=== PATIENT | male | born 1985 | race Caucasian/White ===

== ENCOUNTER 2017-10-18 12:57 | Emergency (ER) | payer SELFPAY ==
[2017-10-18] MEDS ORDERED: Lidocaine 1% w/Epinephrine 1:100K 20 ML VIAL ONE (13:31)
[2017-10-18] MEDS ORDERED: Adacel (T-DAP) 0.5 ML VIAL ONE (13:58)
== END 2017-10-18 14:49 | disposition home or self-care (01) ==
LOC: ERS 12:57
DX: L02.413 Cutaneous abscess of right upper limb (principal); F17.210 Nicotine dependence, cigarettes, uncomplicated
CPT/HCPCS: 10060; 87070; 87077; 87186; 87205; 90471; 90715; 99406; J2001

== ENCOUNTER 2019-02-12 23:40 | Inpatient (IN) | payer SELFPAY ==
[~2019-02-12 23:40] MED LIST: Iopamidol 370 76% 100 ML VIAL ONE
[2019-02-12] MEDS ORDERED: Piperacillin/Tazobactam 4.5 GM VIAL ONE (23:54)
[2019-02-13 00:05] LABS: Prothrombin Time 12.9 SEC (12.0-14.7)
[2019-02-13 00:06] LABS: #Basophils 0.1 thou/uL (0.0-0.2); #Eosinphils 0.4 thou/uL (0.0-0.7); #Monocytes 1.3 thou/uL (0.11-0.59); %Basophils 0.7 % (0.0-1.0); %Lymphocytes 39.1 % (21.0-51.0); %Monocytes 10.3 % (0.0-10.0); %Neutrophils 46.9 % (42.0-75.0); Hemoglobin 15.2 g/dL (14.0-18.0); Mean Corpuscular HGB CONC 31.8 g/dL (32.0-36.0); Mean Corpuscular Hemoglobin 28.1 pg (27.0-31.0); Mean Corpuscular Volume 88.4 fL (78.0-98.0); Mean Platelet Volume 7.9 fL (7.4-10.4); Platelet Count 391 thou/uL (130-400); RBC Distribution Width 11.7 % (11.5-14.5); Red Blood Cell (RBC) Count 5.41 mill/uL (4.70-6.10); White Blood Cell (WBC) Count 12.9 thou/uL (4.8-10.8)
[2019-02-13 00:25] LABS: ALT (SGPT) 21 U/L (8-55); AST (SGOT) 23 U/L (5-34); Albumin 4.4 g/dL (3.5-5.0); Alkaline Phosphatase 66 U/L (40-150); Anion Gap 17 mmol/L (10-20); BUN (Urea Nitrogen) 13 mg/dL (8.9-20.6); Bilirubin, Total 0.2 mg/dL (0.2-1.2); Calc. Creatinine Clearance 0 mL/min (70-130); Carbon Dioxide 22 mmol/L (22-29); Chloride 105 mmol/L (98-107); Estimated GFR-MDRD Greater than 90; Globulin 2.3 g/dL (2.4-3.5); Glucose 104 mg/dL (70-105); Potassium 3.6 mmol/L (3.5-5.1); Protein, Total 6.7 g/dL (6.0-8.3); Sodium 140 mmol/L (136-145)
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
[2019-02-13] MEDS ORDERED: Adacel (T-DAP) 0.5 ML SYRINGE ONE (00:51)
[2019-02-13] MEDS ORDERED: Acetaminophen 1,000 MG in Premix Bag 1 BAG IVPB SCH (01:00)
[2019-02-13] MEDS ORDERED: Fentanyl 100 MCG/2 ML VIAL ONE ×2 (01:06→02:00)
[2019-02-13] MEDS ORDERED: Bupivacaine/Epinephrine 0.25% 30 ML VIAL ONE (01:46)
[2019-02-13] MEDS ORDERED: Promethazine HCl 25 MG/ML VIAL SLOW IVP PRN ×2 (03:12→05:10)
[2019-02-13] MEDS ORDERED: Meperidine HCl/PF 25 MG/ML VIAL SLOW IVP PRN (03:12)
[2019-02-13] MEDS ORDERED: Promethazine HCl 25 MG/ML VIAL IM PRN ×2 (03:12→05:10)
[2019-02-13] MEDS ORDERED: PACU-Morphine 4MG/ML VIAL SLOW IVP PRN (03:12)
[2019-02-13 03:55] LABS: Amphetamine Detected (NotDetected); Barbiturates Screen Not Detected (NotDetected); Benzodiazepine Screen Not Detected (NotDetected); Cocaine Metabolite Screen Not Detected (NotDetected); Medtox Control Line Valid? VALID (VALID); Medtox Reader # READER 4; Methadone Not Detected (NotDetected); Methamphetamine Detected (NotDetected); Opiate Screen Not Detected (NotDetected); Oxycodone Screen Not Detected (NotDetected); Phencyclidine (PCP) Not Detected (NotDetected); THC/Cannabinoid Screen Not Detected (NotDetected); Tricyclic Screen Not Detected (NotDetected)
[2019-02-13] MEDS ORDERED: Ondansetron HCl/PF 4 MG/2 ML Vial IVP PRN (05:10)
[2019-02-13] MEDS ORDERED: HumaLOG 300 UNITS/3 ML VIAL SC PRN (06:47)
[2019-02-13] MEDS ORDERED: Ondansetron PF 4 MG/2 ML Vial IVP PRN (06:47)
[2019-02-13] MEDS ORDERED: Dextrose 5% in Water 1,000 ML IV PRN (06:47)
[2019-02-13] MEDS ORDERED: Dextrose 50% Abboject 50 ML SYRINGE SLOW IVP PRN (06:47)
[2019-02-13 07:28] LABS: Hemoglobin 14.7 g/dL (14.0-18.0); Mean Corpuscular Hemoglobin 29.2 pg (27.0-31.0); Mean Corpuscular Volume 88.7 fL (78.0-98.0); Mean Platelet Volume 7.7 fL (7.4-10.4); Platelet Count 328 thou/uL (130-400); RBC Distribution Width 11.8 % (11.5-14.5); Red Blood Cell (RBC) Count 5.02 mill/uL (4.70-6.10)
[2019-02-13 07:46] LABS: Anion Gap 13 mmol/L (10-20); BUN (Urea Nitrogen) 11 mg/dL (8.9-20.6); Calc. Creatinine Clearance 0 mL/min (70-130); Calcium 8.2 mg/dL (7.8-10.44); Carbon Dioxide 20 mmol/L (22-29); Chloride 108 mmol/L (98-107); Estimated GFR-MDRD Greater than 90; Glucose 154 mg/dL (70-105); Magnesium 1.8 mg/dL (1.6-2.6); Phosphorus 2.2 mg/dL (2.3-4.7); Potassium 3.8 mmol/L (3.5-5.1); Sodium 137 mmol/L (136-145)
[2019-02-13 07:52] LABS: Band 2 % (5-11); Lymphocytes 3 % (21-51); MDiff Complete? YES; Monocytes 6 % (0-10); Neutrophil 84 % (42-75); Platelet Morphology Comment Appears Adequate; RBC Morphology Normal; Reactive Lymphocytes 5 % (0-10); White Blood Cell (WBC) Count 21.8 thou/uL (4.8-10.8)
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
[2019-02-13] MEDS ORDERED: Sodium Phosphate 30 MMOL in Sodium Chloride 0.9% 250 ML 250 ML IVPB SCH (08:15)
[2019-02-13] MEDS ORDERED: Magnesium Sulfate 4 GM in Sodium Chloride 0.9% 250 ML 250 ML IVPB SCH (08:15)
[2019-02-13] MEDS: Ketorolac Tromethamine 30 MG/ML VIAL IVP SCH ×4 (08:52→20:23)
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
[2019-02-13] MEDS: Acetaminophen 1,000 MG in Premix Bag 1 BAG IVPB SCH ×3 (10:30→20:22)
[2019-02-13] MEDS: Famotidine/PF 20 mg/2ml Vial SLOW IVP SCH ×2 (10:31→20:29)
[2019-02-13 10:47] VITALS: BMI 25.0
[2019-02-13] MEDS ORDERED: Prevnar 13-Val Conj/PF 0.5 ML SYRINGE IM ONE (12:15)
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
[2019-02-13] MEDS: Piperacillin/Tazobactam 3.375 GM in Sodium Chloride 0.9% 100 ML IVPB SCH ×2 (12:52→18:46)
[2019-02-13] MEDS: Sodium Chloride 0.9% 1,000 ML IV SCH (12:56)
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
[2019-02-13] MEDS ORDERED: Ondansetron PF 4 MG/2 ML Vial ONE (15:25)
[2019-02-13] MEDS ORDERED: PHENYLEPHRINE-NS 100 MCG/ML 10 ML SYRINGE ONE (15:25)
[2019-02-13] MEDS ORDERED: Dexamethasone 20 MG/5 ML VIAL ONE (15:25)
[2019-02-13] MEDS ORDERED: PROPOFOL 200 MG/20 ML VIAL ONE (15:25)
[2019-02-13] MEDS ORDERED: Rocuronium Bromide 10 MG/ML (10ML VIAL) ONE (15:25)
[2019-02-13] MEDS ORDERED: Succinylcholine Chloride 20 MG/ML 10 ml SYRINGE FS ONE (15:25)
[2019-02-13] MEDS ORDERED: Glycopyrrolate 0.2 MG/ML 5 ML SYRINGE ONE (15:25)
[2019-02-13] MEDS ORDERED: Lidocaine 1% PF 5 ML VIAL ONE (15:25)
--- NOTE | 2019-02-13 19:01 | PDOC.GSPN ---
Surgery Progress Note: Subj - Subjective Narrative: Seen with Alo Garcia MS 3; please see his note. I agree with his evaluation. The patient states that he does not drink on a regular basis, and he appears to have a binge pattern of alcohol misuse. He denies any history of withdrawal or the shakes. Still, I agree that we need to be vigilant for withdrawal. The patient has been tolerating ice chips but hasn't passed gas or had a bowel movement yet so I did not advance his diet, but I will start him on clear liquids tomorrow. He is ambulating. The trauma team is following as well. Surgery Progress Note: Obj - Vital signs Vital signs: Vital Signs - Most Recent Temp Pulse Resp BP Pulse Ox 97.6 F 104 H 16 108/69 98 02/13/19 15:41 02/13/19 15:41 02/13/19 15:41 02/13/19 15:41 02/13/19 15:41 Surgery Progress Note: Results - Labs Result Diagrams: 02/13/19 07:20 02/13/19 07:20 Lab results: Laboratory Results - last 24 hr 02/13/19 02/13/19 07:20 07:20 WBC 21.8 H RBC 5.02 Hgb 14.7 Hct 44.5 MCV 88.7 MCH 29.2 MCHC 33.0 RDW 11.8 Plt Count 328 MPV 7.7 Neutrophils % (Manual) 84 H Band Neuts % (Manual) 2 L Lymphocytes % (Manual) 3 L Reactive Lymphs % 5 Monocytes % (Manual) 6 Neutrophils # Not Reportable Lymphocytes # Not Reportable Plt Morphology Comment Appears Adequate RBC Morph Comment Normal Sodium 137 Potassium 3.8 Chloride 108 H Carbon Dioxide 20 L Anion Gap 13 BUN 11 Creatinine 0.80 Estimated GFR (MDRD) Greater than 90 Glucose 154 H Calcium 8.2 Phosphorus 2.2 L Magnesium 1.8
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
[2019-02-14] MEDS: Piperacillin/Tazobactam 3.375 GM in Sodium Chloride 0.9% 100 ML IVPB SCH ×2 (00:54→05:46)
[2019-02-14] MEDS: Sodium Chloride 0.9% 1,000 ML IV SCH ×2 (00:55→05:45)
[2019-02-14] MEDS: Ketorolac Tromethamine 30 MG/ML VIAL IVP SCH ×2 (02:30→09:19)
[2019-02-14] MEDS: Acetaminophen 1,000 MG in Premix Bag 1 BAG IVPB SCH (02:32)
[2019-02-14 05:31] LABS: #Eosinphils 0.1 thou/uL (0.0-0.7); #Lymphocytes 1.9 thou/uL (1.20-3.40); #Neutrophils 6.8 thou/uL (1.40-6.50); %Basophils 0.3 % (0.0-1.0); %Eosinophils 0.5 % (0.0-10.0); %Lymphocytes 19.4 % (21.0-51.0); %Monocytes 9.8 % (0.0-10.0); %Neutrophils 69.9 % (42.0-75.0); Hemoglobin 12.3 g/dL (14.0-18.0); Mean Corpuscular HGB CONC 32.8 g/dL (32.0-36.0); Mean Corpuscular Hemoglobin 29.8 pg (27.0-31.0); Mean Corpuscular Volume 90.9 fL (78.0-98.0); Mean Platelet Volume 8.2 fL (7.4-10.4); Platelet Count 246 thou/uL (130-400); RBC Distribution Width 11.8 % (11.5-14.5); Red Blood Cell (RBC) Count 4.11 mill/uL (4.70-6.10); White Blood Cell (WBC) Count 9.7 thou/uL (4.8-10.8)
[2019-02-14 05:51] LABS: Anion Gap 9 mmol/L (10-20); BUN (Urea Nitrogen) 13 mg/dL (8.9-20.6); Calc. Creatinine Clearance 138 mL/min (70-130); Calcium 7.9 mg/dL (7.8-10.44); Carbon Dioxide 24 mmol/L (22-29); Chloride 108 mmol/L (98-107); Estimated GFR-MDRD Greater than 90; Glucose 92 mg/dL (70-105); Magnesium 2.6 mg/dL (1.6-2.6); Potassium 3.9 mmol/L (3.5-5.1); Sodium 137 mmol/L (136-145)
[2019-02-14] MEDS: Famotidine/PF 20 mg/2ml Vial SLOW IVP SCH ×2 (09:19→21:30)
[2019-02-14] MEDS ORDERED: Cyclobenzaprine 10 MG TAB PO PRN (10:14)
[2019-02-14] MEDS ORDERED: Lactated Ringer's 1,000 ML IV SCH ×2 (10:15)
[2019-02-14] MEDS: Acetaminophen 500 MG TAB PO SCH ×3 (10:59→23:39)
[2019-02-14] MEDS: traMADol HCl 50 MG TAB PO SCH ×3 (11:00→23:39)
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
[2019-02-14] MEDS: Lactated Ringer's 1,000 ML IV SCH (19:41)
[2019-02-14] MEDS: Senokot S 8.6-50 MG TAB PO SCH (21:30)
[2019-02-14] MEDS: traMADol HCl 50 MG TAB PO PRN (23:40)
[2019-02-15] MEDS: Lactated Ringer's 1,000 ML IV SCH ×2 (00:33→16:28)
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
[2019-02-15 05:52] LABS: #Basophils 0.1 thou/uL (0.0-0.2); #Eosinphils 0.1 thou/uL (0.0-0.7); #Lymphocytes 1.9 thou/uL (1.20-3.40); #Monocytes 0.7 thou/uL (0.11-0.59); #Neutrophils 6.7 thou/uL (1.40-6.50); %Basophils 0.6 % (0.0-1.0); %Eosinophils 1.2 % (0.0-10.0); %Lymphocytes 19.8 % (21.0-51.0); %Monocytes 7.5 % (0.0-10.0); Hemoglobin 11.7 g/dL (14.0-18.0); Mean Corpuscular HGB CONC 32.2 g/dL (32.0-36.0); Mean Corpuscular Hemoglobin 29.4 pg (27.0-31.0); Mean Corpuscular Volume 91.1 fL (78.0-98.0); Mean Platelet Volume 8.5 fL (7.4-10.4); Platelet Count 239 thou/uL (130-400); RBC Distribution Width 11.8 % (11.5-14.5); Red Blood Cell (RBC) Count 3.97 mill/uL (4.70-6.10); White Blood Cell (WBC) Count 9.5 thou/uL (4.8-10.8)
[2019-02-15] MEDS: Acetaminophen 500 MG TAB PO SCH ×4 (05:54→23:38)
[2019-02-15] MEDS: traMADol HCl 50 MG TAB PO SCH ×4 (05:54→23:38)
[2019-02-15 06:19] LABS: Anion Gap 10 mmol/L (10-20); BUN (Urea Nitrogen) 11 mg/dL (8.9-20.6); Calc. Creatinine Clearance 159 mL/min (70-130); Calcium 8.2 mg/dL (7.8-10.44); Carbon Dioxide 24 mmol/L (22-29); Chloride 105 mmol/L (98-107); Estimated GFR-MDRD Greater than 90; Glucose 75 mg/dL (70-105); Magnesium 1.9 mg/dL (1.6-2.6); Phosphorus 2.8 mg/dL (2.3-4.7); Potassium 3.6 mmol/L (3.5-5.1); Sodium 135 mmol/L (136-145)
[2019-02-15] MEDS: Enoxaparin Sodium 40 MG/0.4 ML SYRINGE SC SCH (09:27)
[2019-02-15] MEDS: Polyethylene Glycol 3350 17 GM Packet PO SCH (09:27)
[2019-02-15] MEDS: Famotidine/PF 20 mg/2ml Vial SLOW IVP SCH ×2 (09:28→21:23)
[2019-02-15] MEDS: Senokot S 8.6-50 MG TAB PO SCH ×2 (09:28→21:24)
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
[2019-02-15] MEDS: traMADol HCl 50 MG TAB PO PRN (23:39)
[2019-02-16] MEDS: traMADol HCl 50 MG TAB PO SCH ×4 (05:59→23:22)
[2019-02-16] MEDS: Acetaminophen 500 MG TAB PO SCH ×4 (06:00→23:21)
[2019-02-16] MEDS: Lactated Ringer's 1,000 ML IV SCH ×2 (06:01→17:21)
[2019-02-16] MEDS: Famotidine 20 MG TAB PO SCH ×2 (10:09→20:50)
[2019-02-16] MEDS: Enoxaparin Sodium 40 MG/0.4 ML SYRINGE SC SCH (10:10)
[2019-02-16] MEDS: Senokot S 8.6-50 MG TAB PO SCH ×2 (10:10→21:53)
[2019-02-16] MEDS: Polyethylene Glycol 3350 17 GM Packet PO SCH (10:10)
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
[2019-02-16] MEDS: traMADol HCl 50 MG TAB PO PRN (12:46)
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
[2019-02-17] MEDS: traMADol HCl 50 MG TAB PO SCH ×4 (05:59→23:59)
[2019-02-17] MEDS: Acetaminophen 500 MG TAB PO SCH ×4 (05:59→23:58)
[2019-02-17] MEDS: Polyethylene Glycol 3350 17 GM Packet PO SCH (08:36)
[2019-02-17] MEDS: traMADol HCl 50 MG TAB PO PRN ×2 (08:36→21:49)
[2019-02-17] MEDS: Enoxaparin Sodium 40 MG/0.4 ML SYRINGE SC SCH (08:37)
[2019-02-17] MEDS: Bisacodyl 10 MG SUPP PR SCH (08:38)
[2019-02-17] MEDS: Senokot S 8.6-50 MG TAB PO SCH ×2 (08:38→21:48)
[2019-02-17] MEDS: Famotidine 20 MG TAB PO SCH ×2 (08:38→21:48)
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
[2019-02-18] MEDS: traMADol HCl 50 MG TAB PO PRN (04:25)
[2019-02-18] MEDS: Acetaminophen 500 MG TAB PO SCH ×4 (04:25→23:58)
[2019-02-18] MEDS: traMADol HCl 50 MG TAB PO SCH ×4 (05:41→23:59)
[2019-02-18] MEDS: Senokot S 8.6-50 MG TAB PO SCH ×2 (08:06→20:59)
[2019-02-18] MEDS: Polyethylene Glycol 3350 17 GM Packet PO SCH (08:06)
[2019-02-18] MEDS: Bisacodyl 10 MG SUPP PR SCH (08:06)
[2019-02-18] MEDS: Enoxaparin Sodium 40 MG/0.4 ML SYRINGE SC SCH (08:13)
[2019-02-18] MEDS: Famotidine 20 MG TAB PO SCH ×2 (08:13→20:59)
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
[2019-02-19] MEDS: Acetaminophen 500 MG TAB PO SCH ×2 (05:30→11:40)
[2019-02-19] MEDS: traMADol HCl 50 MG TAB PO SCH ×2 (05:30→11:41)
[2019-02-19 08:49] VITALS: TEMP 97.9
[2019-02-19] MEDS ORDERED: Aspirin 325 mg Enteric Coated Tablet PO SCH (09:00)
[2019-02-19] MEDS: Polyethylene Glycol 3350 17 GM Packet PO SCH (09:20)
[2019-02-19] MEDS: Bisacodyl 10 MG SUPP PR SCH (09:20)
[2019-02-19] MEDS: Famotidine 20 MG TAB PO SCH (09:21)
[2019-02-19] MEDS: Senokot S 8.6-50 MG TAB PO SCH (09:21)
[2019-02-19] MEDS: Enoxaparin Sodium 40 MG/0.4 ML SYRINGE SC SCH (09:22)
[2019-02-19 13:19] VITALS: BP 119/69
== END 2019-02-19 15:43 | disposition home or self-care (01) | DRG 330 ==
LOC: ERS 23:40 → SDC/OP 02-13 02:08 → SURG A 02-13 05:32
PROVIDERS: ADMIT Surgery; ATTEND Surgery
PROC: 0DQB0ZZ Repair Ileum, Open Approach (ICD-10-PCS; principal; 2019-02-13)
PROC: 0DTJ0ZZ Resection of Appendix, Open Approach (ICD-10-PCS; 2019-02-13)
DX: S36.438A Laceration of other part of small intestine, initial encounter (principal); K56.7 Ileus, unspecified; S36.39XA Other injury of stomach, initial encounter; X95.01XA Assault by airgun discharge, initial encounter; F15.10 Other stimulant abuse, uncomplicated; F10.129 Alcohol abuse with intoxication, unspecified; G89.18 Other acute postprocedural pain; Z90.89 Acquired absence of other organs; Z53.31 Laparoscopic surgical procedure converted to open procedure
CPT/HCPCS: 36415; 70450; 74018; 74019; 74177; 80048; 80053; 80306; 80307; 83735; 84100; 85025; 85610; 85730; 86850; 86900; 86901; 88304; 90471; 90715; 96365; 96375; J0131; J1100; J1650; J1885; J2001; J2405; J2543; J2704; J3010; J3475; J3490; J7050; Q9967; S0028

== ENCOUNTER 2019-05-26 22:24 | Emergency (ER) | payer SELFPAY | END 2019-05-26 23:40 | LOC: ERS 22:24 | DX: S01.81XA Laceration without foreign body of other part of head, initial encounter (principal); M25.561 Pain in right knee; M25.562 Pain in left knee; F17.210 Nicotine dependence, cigarettes, uncomplicated; X58.XXXA Exposure to other specified factors, initial encounter | CPT/HCPCS: 99283 ==